=== PATIENT | male | born 1995 | race Caucasian/White ===

== ENCOUNTER 2019-07-13 17:09 | Emergency (ER) | payer MEDICAID ==
[~2019-07-13] VITALS: Ht 177.8 cm; Wt 64.8 kg
--- NOTE | 2019-07-13 17:54 | NUR ---
MUD ANALYSIS WELL LOGGING CAPTAIN: PT TO ROOM FROM LOBBY.
[2019-07-13] MEDS ORDERED: ONDANSETRON 2MG/ML, 2ML ONE (18:18)
[2019-07-13] MEDS ORDERED: LORazepam 2 MG/ML, 1ML ONE (18:19)
--- NOTE | 2019-07-13 18:24 | NUR ---
IV START. LABS DRAWN. MEDS ADMIN PER MAR. FAMILY AT BEDSIDE.
[2019-07-13] MEDS ORDERED: SODIUM CHLORIDE FLUSH 10ML SYR IVF ONE (18:30)
[2019-07-13] MEDS ORDERED: LORazepam 2 MG/ML, 1ML IVPush ONE (18:30)
[2019-07-13] MEDS ORDERED: SODIUM CHLORIDE 0.9% 1,000ML IVBOLUS ONE (18:30)
[2019-07-13] MEDS ORDERED: ONDANSETRON 2MG/ML, 2ML IVPush ONE (18:30)
[2019-07-13 18:35] LABS: ALANINE AMINOTRANSFERASE 23 U/L (12-78); ALBUMIN 4.8 g/dL (3.4-5.0); ANION GAP 13 mmol/L (5-15); CALCIUM 9.9 mg/dL (8.5-10.1); CHLORIDE 105 mmol/L (98-107); CREATININE 1.04 mg/dL (0.7-1.3)
[2019-07-13 18:38] LABS: ALKALINE PHOSPHATASE 63 U/L (45-117); BILIRUBIN,TOTAL 1.2 mg/dL (0.2-1.0); TOTAL PROTEIN 8.9 g/dL (6.4-8.2)
[2019-07-13 18:47] LABS: BASOPHILS % (AUTO) 0 % (0-1); EOSINOPHILS % (AUTO) 0 % (1-7); LYMPHOCYTES # (AUTO) 0.59 x10^3/uL (1-3.4); LYMPHOCYTES % (AUTO) 5 % (22-44); MD NO; MEAN CORPUSCULAR HEMOGLOBIN 29.9 pg (27.5-34.5); MEAN CORPUSCULAR HGB CONC 33.8 g/dL (33.2-36.2); MEAN CORPUSCULAR VOLUME 88.3 fL (81-97); MEAN PLATELET VOLUME 7.6 fL (7.4-10.4); MONOCYTES # (AUTO) 0.16 x10^3/uL (0.2-0.8); MONOCYTES % (AUTO) 1 % (2-9); NEUTROPHILS # (AUTO) 10.87 x10^3/uL (1.8-6.8); NEUTROPHILS % (AUTO) 94 % (42-75); PLATELET COUNT 287 x10^3/uL (130-400); RED BLOOD COUNT 5.28 x10^6/uL (4.38-5.82); RED CELL DISTRIBUTION WIDTH 13.8 % (9.4-14.8)
--- NOTE | 2019-07-13 18:58 | NUR ---
PT RESTING COMFORTABLY ON GURNEY. JORGE. PT STATES HE FEELS BETTER AFTER IVF.
[2019-07-13] MEDS ORDERED: MAALOX/HYOSCYAMINE/LIDOCAINE 45 ML BTL ONE (19:25)
--- NOTE | 2019-07-13 19:28 | NUR ---
MEDS ADMIN PER COMPLETE. PT RESTING ON GURNEY. HER
[2019-07-13] MEDS ORDERED: MAALOX/HYOSCYAMINE/LIDOCAINE 45 ML BTL PO ONE (19:30)
--- NOTE | 2019-07-13 19:39 | NUR ---
ALL RESULTS ARE BACK AT THIS TIME. CHART UP FOR RECHECK.
--- NOTE | 2019-07-13 20:14 | NUR ---
BREAK RN FOR PRIMARY RN JOSH. PT RESTING IN POSITION OF COMFORT. DENIES NEED TO USE RESTROOM. REPORTS "I'M FEELING A LOT BETTER NOW." SIGNIFICANT OTHER/FAMILY AT BEDSIDE. VSS. AWAITING RECHECK. CALL LIGHT IN REACH. FALL PRECAUTIONS IN PLACE.
[2019-07-13 20:15] VITALS: BP 108/69
--- NOTE | 2019-07-13 20:30 | NUR ---
BEDSIDE REPORT AND TRANSFER OF CARE BACK TO PRIMARY BELL MORENO
== END 2019-07-13 21:17 | disposition home or self-care (01) ==
LOC: ED 19:27
DX: K29.70 Gastritis, unspecified, without bleeding (principal); R11.10 Vomiting, unspecified; Z72.0 Tobacco use
CPT/HCPCS: 36415; 74021; 76700; 80053; 83690; 85025; 96361; 96374; 96375; 99284; J2060; J2405; J7030

== ENCOUNTER 2020-02-07 07:29 | Emergency (ER) | payer MEDICAID ==
[~2020-02-07] VITALS: Ht 177.8 cm; Wt 72.9 kg
[2020-02-07] MEDS ORDERED: FAMOTIDINE 20 MG/2 ML ONE (07:56)
[2020-02-07] MEDS ORDERED: ONDANSETRON 2MG/ML, 2ML ONE (07:56)
[2020-02-07] MEDS ORDERED: ONDANSETRON 2MG/ML, 2ML IVPush ONE (08:00)
[2020-02-07] MEDS ORDERED: SODIUM CHLORIDE 0.9% 1,000ML IVBOLUS ONE (08:00)
[2020-02-07] MEDS ORDERED: FAMOTIDINE 20 MG/2 ML IV ONE (08:00)
[2020-02-07 08:15] LABS: BASOPHILS # (AUTO) 0.03 x10^3/uL (0-0.1); BASOPHILS % (AUTO) 0 % (0-1); EOSINOPHILS % (AUTO) 1 % (1-7); LYMPHOCYTES # (AUTO) 1.38 x10^3/uL (1-3.4); LYMPHOCYTES % (AUTO) 12 % (22-44); MD NO; MEAN CORPUSCULAR HEMOGLOBIN 30.4 pg (27.5-34.5); MEAN CORPUSCULAR HGB CONC 33.8 g/dL (33.2-36.2); MEAN CORPUSCULAR VOLUME 89.9 fL (81-97); MEAN PLATELET VOLUME 6.9 fL (7.4-10.4); MONOCYTES # (AUTO) 0.46 x10^3/uL (0.2-0.8); MONOCYTES % (AUTO) 4 % (2-9); NEUTROPHILS # (AUTO) 9.11 x10^3/uL (1.8-6.8); NEUTROPHILS % (AUTO) 82 % (42-75); PLATELET COUNT 265 x10^3/uL (130-400); RED BLOOD COUNT 5.49 x10^6/uL (4.38-5.82); RED CELL DISTRIBUTION WIDTH 12.3 % (9.4-14.8)
[2020-02-07 08:28] LABS: ALANINE AMINOTRANSFERASE 26 U/L (12-78); ALBUMIN 4.9 g/dL (3.4-5.0); ANION GAP 13 mmol/L (5-15); CALCIUM 9.4 mg/dL (8.5-10.1); CHLORIDE 109 mmol/L (98-107)
[2020-02-07 08:30] LABS: ALKALINE PHOSPHATASE 58 U/L (45-117); BILIRUBIN,TOTAL 1.5 mg/dL (0.2-1.0); CREATININE 1.14 mg/dL (0.7-1.3); TOTAL PROTEIN 8.1 g/dL (6.4-8.2)
[2020-02-07 08:45] LABS: MICROSCOPIC AUTO
--- NOTE | 2020-02-07 09:00 | NUR ---
PT RESTING ON GURNEY. STATES HIS NAUSEA HAS IMPROVED AND ABLE TO DOZE OFF. COMFORT MEASURES PROVIDED, CALL LIGHT WITHIN REACH.
[2020-02-07] MEDS ORDERED: PROMETHAZINE 25 MG/ML, 1ML ONE (09:21)
[2020-02-07] MEDS ORDERED: PROMETHAZINE 25 MG/ML, 1ML IM ONE (09:30)
--- NOTE | 2020-02-07 10:10 | NUR ---
PT UP TO BATHROOM. ABLE TO DOZE OFF AND REPORTS NAUSEA IS " A LITTLE BETTER AFTER SHOT". COMFORT MEASURES PROVIDED AND CALL LIGHT WITHIN REACH.
[2020-02-07 10:39] VITALS: BP 139/73
--- NOTE | 2020-02-07 11:53 | NUR ---
Patient given VERBAL discharge instructions and they have confirmed that they understand the instructions. Patient ambulatory with steady gait. PT DID NOT WAIT FOR WRITTEN INSTRUCTIONS AND MD SILVIA AWARE.
== END 2020-02-07 11:55 | disposition home or self-care (01) ==
LOC: ED 08:14
DX: R11.2 Nausea with vomiting, unspecified (principal); R10.84 Generalized abdominal pain; R19.7 Diarrhea, unspecified
CPT/HCPCS: 36415; 80053; 81001; 83690; 85025; 87086; 96361; 96372; 96374; 96375; 99284; J2405; J2550; J3490; J7030

== ENCOUNTER 2020-02-08 21:39 | Emergency (ER) | payer MEDICAID ==
[~2020-02-08] VITALS: Ht 175.3 cm; Wt 72.6 kg
--- NOTE | 2020-02-08 22:00 | NUR ---
Pt known to have celiac dx. States ate soy sauce 2 hours ago. Has been exhibiting diffuse abd pain/cramping w/ n/v since. Pt tender in all abd ibrahim to palpation. States puking up until he checked into er. Appears to be in acute distress. Monitoring applied. VSS. Family at bedside. Awaiting ERP assessment.
[2020-02-08] MEDS ORDERED: MAALOX/HYOSCYAMINE/LIDOCAINE 45 ML BTL ONE (22:10)
[2020-02-08] MEDS ORDERED: ONDANSETRON 2MG/ML, 2ML ONE (22:10)
[2020-02-08 22:30] LABS: BASOPHILS % (AUTO) 1 % (0-1); EOSINOPHILS # (AUTO) 0.06 x10^3/uL (0-0.4); EOSINOPHILS % (AUTO) 1 % (1-7); LYMPHOCYTES # (AUTO) 1.39 x10^3/uL (1-3.4); LYMPHOCYTES % (AUTO) 13 % (22-44); MD NO; MEAN CORPUSCULAR HEMOGLOBIN 30.4 pg (27.5-34.5); MEAN CORPUSCULAR HGB CONC 33.7 g/dL (33.2-36.2); MEAN CORPUSCULAR VOLUME 90.2 fL (81-97); MEAN PLATELET VOLUME 7.1 fL (7.4-10.4); MONOCYTES % (AUTO) 6 % (2-9); NEUTROPHILS # (AUTO) 8.33 x10^3/uL (1.8-6.8); NEUTROPHILS % (AUTO) 79 % (42-75); PLATELET COUNT 252 x10^3/uL (130-400); RED CELL DISTRIBUTION WIDTH 12.4 % (9.4-14.8)
[2020-02-08] MEDS ORDERED: ONDANSETRON 2MG/ML, 2ML IVPush ONE (22:30)
[2020-02-08] MEDS ORDERED: MAALOX/HYOSCYAMINE/LIDOCAINE 45 ML BTL PO ONE (22:30)
[2020-02-08] MEDS ORDERED: SODIUM CHLORIDE 0.9% 1,000ML IVBOLUS ONE (22:30)
[2020-02-08 22:36] LABS: ALANINE AMINOTRANSFERASE 33 U/L (12-78); ALBUMIN 5.1 g/dL (3.4-5.0); ANION GAP 12 mmol/L (5-15); CALCIUM 9.3 mg/dL (8.5-10.1); CHLORIDE 103 mmol/L (98-107)
[2020-02-08 22:39] LABS: ALKALINE PHOSPHATASE 52 U/L (45-117); BILIRUBIN,TOTAL 1.3 mg/dL (0.2-1.0); TOTAL PROTEIN 8.5 g/dL (6.4-8.2)
[2020-02-08 22:42] VITALS: BP 122/69
--- NOTE | 2020-02-08 22:42 | NUR ---
PT states pain is better. Resting more comfortably on gurney. All results back. Pt up for recheck.
--- NOTE | 2020-02-08 22:49 | NUR ---
Pt report to Kimberly guerrero.
[2020-02-08] MEDS ORDERED: POTASSIUM CHLORIDE 20 MEQ TAB.ER.PRT PO ONE (23:30)
[2020-02-08] MEDS ORDERED: POTASSIUM CHLORIDE 20 MEQ TAB.ER.PRT ONE (23:35)
[2020-02-08] MEDS ORDERED: PROMETHAZINE 25 MG/ML, 1ML ONE (23:38)
[2020-02-09] MEDS ORDERED: PROMETHAZINE 25 MG/ML, 1ML IM ONE
== END 2020-02-09 00:20 ==
LOC: ED 23:30
DX: A08.4 Viral intestinal infection, unspecified (principal); R10.9 Unspecified abdominal pain; R11.2 Nausea with vomiting, unspecified; R19.7 Diarrhea, unspecified; E87.6 Hypokalemia; Z87.891 Personal history of nicotine dependence
CPT/HCPCS: 36415; 80053; 83690; 85025; 96361; 96372; 96374; 99284; J2405; J2550; J7030

== ENCOUNTER 2020-06-24 18:10 | Emergency (ER) | payer MEDICAID ==
[~2020-06-24] VITALS: Ht 175.3 cm; Wt 71.9 kg
--- NOTE | 2020-06-24 18:21 | NUR ---
Pt changing into gown. Just arrived from triage and warm blanket provided.
[2020-06-24] MEDS ORDERED: SODIUM CHLORIDE 0.9% 1,000ML IVBOLUS ONE (18:30)
[2020-06-24] MEDS ORDERED: ONDANSETRON 2MG/ML, 2ML IVPush ONE (18:30)
[2020-06-24 18:53] LABS: MEAN CORPUSCULAR HEMOGLOBIN 30.7 pg (27.5-34.5); MEAN CORPUSCULAR HGB CONC 35.4 g/dL (33.2-36.2); MEAN PLATELET VOLUME 6.7 fL (7.4-10.4); PLATELET COUNT 312 x10^3/uL (130-400); RED BLOOD COUNT 5.15 x10^6/uL (4.38-5.82); RED CELL DISTRIBUTION WIDTH 12.7 % (9.4-14.8)
[2020-06-24] MEDS ORDERED: ONDANSETRON 2MG/ML, 2ML ONE (18:58)
[2020-06-24 18:59] LABS: MD YES
[2020-06-24 19:00] LABS: ALBUMIN 4.9 g/dL (3.4-5.0); ANION GAP 12 mmol/L (5-15); CALCIUM 9.7 mg/dL (8.5-10.1); CHLORIDE 102 mmol/L (98-107)
[2020-06-24 19:03] LABS: ALANINE AMINOTRANSFERASE 39 U/L (12-78); ALKALINE PHOSPHATASE 66 U/L (45-117); CREATININE 1.01 mg/dL (0.7-1.3); TOTAL PROTEIN 8.8 g/dL (6.4-8.2)
[2020-06-24 19:26] LABS: LYMPH#(MANUAL) 1.03 x10^3/uL (1-3.4); LYMPHS% (MANUAL) 9 % (22-44); MONOS#(MANUAL) 0.11 x10^3/uL (0.3-2.7); MONOS% (MANUAL) 1 % (2-9); SEG#(MANUAL) 10.26 x10^3/uL (1.8-6.8); SEGS% (MANUAL) 90 % (42-75)
[2020-06-24 19:27] LABS: <PLATELET ESTIMATE> ADEQUATE; <PLT MORPHOLOGY> NORMAL PLT MORPH; <RBC MORPHOLOGY> NORMAL
--- NOTE | 2020-06-24 20:20 | NUR ---
PO challenge started with small sips of water and fresh emesis bag.
--- NOTE | 2020-06-24 20:53 | NUR ---
PO challenge failed. Pt with emesis within 15 minutes.
[2020-06-24 20:54] VITALS: BP 128/67
[2020-06-24] MEDS ORDERED: PROMETHAZINE 25 MG/ML, 1ML IM ONE (21:00)
[2020-06-24] MEDS ORDERED: PROMETHAZINE 25 MG/ML, 1ML ONE (21:17)
--- NOTE | 2020-06-24 21:19 | NUR ---
Emesis x2 with approx 150mL out noted. New emesis bag provided and Phenergan IM given as ordered.
--- NOTE | 2020-06-24 22:11 | NUR ---
TASK RN: PT REPORTS IMPROVED S/S AFTER MEDICATIONS. DC EDUCATION PROVIDED, PT DEMONSTRATES UNDERSTANDING. IV DC'D. PT AMBULATED STEADILY TO DC WITH RN AND FRIEND. FRIEND TO TRANSPORT PT HOME.
== END 2020-06-24 22:14 | disposition home or self-care (01) ==
LOC: ED 19:30
DX: R11.2 Nausea with vomiting, unspecified (principal); E86.0 Dehydration; R19.7 Diarrhea, unspecified; R10.9 Unspecified abdominal pain; R00.0 Tachycardia, unspecified; Z87.891 Personal history of nicotine dependence
CPT/HCPCS: 36415; 80053; 83690; 85025; 96361; 96372; 96374; 99284; J2405; J2550; J7030

== ENCOUNTER 2020-06-25 05:17 | Emergency (ER) | payer MEDICAID ==
[~2020-06-25] VITALS: Ht 175.3 cm; Wt 70.1 kg
[2020-06-25] MEDS ORDERED: ONDANSETRON 2MG/ML, 2ML ONE (05:38)
[2020-06-25] MEDS ORDERED: PANTOPRAZOLE 40 MG IV ONE (05:53)
[2020-06-25] MEDS ORDERED: FAMOTIDINE 20 MG/2 ML ONE (05:56)
[2020-06-25] MEDS ORDERED: FAMOTIDINE 20 MG/2 ML IV ONE (06:00)
[2020-06-25] MEDS ORDERED: SODIUM CHLORIDE FLUSH 10ML SYR IVF ONE (06:00)
[2020-06-25] MEDS ORDERED: ONDANSETRON 2MG/ML, 2ML IVPush ONE (06:00)
--- NOTE | 2020-06-25 06:01 | NUR ---
pt was seen in ed earlier yesterday evening for same c/o abdominal pain down midline and in right lower quadrant, nausea, vomitting and diarrhea. pt reports multiple similar occurences over the past year. pt nad, states "i cant keep anything down since i left last night". resting on gurney, bed in lowest, skin p/w/d, rails engaged call light on lap, wctm. waiting for lab results. Kalin BETTS at bedside for eval and poc. placed on spo2/bp monitoring at this time. vss. medicated per aug.
--- NOTE | 2020-06-25 06:27 | NUR ---
PT BEGAN DRY HEAVING AT THIS TIME, PROVIDED EMESIS BAGS, NAD, VSS, CURRENTLY ONLY APPROX 3 ML OF BILE/SALIVA. BED IN LOWEST, CALL LIGHT ON LAP, RAILS IN PLACE, [facility].
[2020-06-25] MEDS ORDERED: SODIUM CHLORIDE 0.9% 1,000ML IVBOLUS ONE (06:30)
[2020-06-25 06:31] LABS: ALANINE AMINOTRANSFERASE 37 U/L (12-78); ALBUMIN 4.6 g/dL (3.4-5.0); ANION GAP 10 mmol/L (5-15); CHLORIDE 104 mmol/L (98-107); CREATININE 0.91 mg/dL (0.7-1.3)
[2020-06-25 06:33] LABS: ALKALINE PHOSPHATASE 59 U/L (45-117); BILIRUBIN,TOTAL 1.3 mg/dL (0.2-1.0); TOTAL PROTEIN 8.2 g/dL (6.4-8.2)
[2020-06-25] MEDS ORDERED: METOCLOPRAMIDE 5 MG/ML, 2ML ONE (06:57)
[2020-06-25] MEDS ORDERED: METOCLOPRAMIDE 5 MG/ML, 2ML IVPush ONE (07:00)
--- NOTE | 2020-06-25 07:03 | NUR ---
BEDSIDE REPORT TO KINDRA RN, PT CARE TRANSFERRED AT THIS TIME. ERP AWARE PT VOMITTING, ORDERS RECEIVED. KINDRA LUU AWARE.
--- NOTE | 2020-06-25 07:07 | NUR ---
Bedside report from BELL Castanon. Pt sitting in bed, still dry heaving and asking for water. MD Anne to bedside. Pt reminded of NPO status. Medicated. Remains connected to BP and O2 monitors.
[2020-06-25] MEDS ORDERED: HALOPERIDOL 5 MG/ML ONE (07:40)
[2020-06-25] MEDS ORDERED: HALOPERIDOL DECANOATE 50 MG/ML IM ONE (08:00)
[2020-06-25] MEDS ORDERED: HALOPERIDOL 5 MG/ML IM ONE (08:00)
[2020-06-25 08:32] VITALS: BP 134/86
== END 2020-06-25 08:34 | disposition home or self-care (01) ==
LOC: ED 05:33
DX: R11.2 Nausea with vomiting, unspecified (principal); R10.13 Epigastric pain; R19.7 Diarrhea, unspecified; Z87.891 Personal history of nicotine dependence
CPT/HCPCS: 36415; 80053; 96361; 96372; 96374; 96375; 99284; J1630; J2405; J2765; J7030